=== PATIENT | female | born 1950 | race Caucasian/White ===

== ENCOUNTER → 2023-09-05 | Day surgery (SDC) | payer MEDICARE, OTHER ==
[~2023-09-05] MED LIST: Bupivacaine 0.25% 10 ML SDV ONE; Cyclobenzaprine 10 MG Tab PO PRN; EPINEPHrine 1 MG/ML SDV ONE; Midazolam 1 MG/ML 2 ML SDV ONE; Neostigmine Methylsulfate 10 MG/10 ML MDV ONE; Ondansetron 4 MG/2 ML SDV ONE; Phenylephrine 1% 10 MG/ML SDV ONE; Propofol 200 MG/20 ML SDV ONE; Ropivacaine 0.5% 5 MG/ML 30 ML SDV ONE; Sodium Chloride 0.9% 10 ML Syringe FLUSH PRN; Sodium Chloride 0.9% 10 ML Syringe FLUSH SCH; Triamcinolone Acetonide 40 MG/ML 1 ML SDV ONE; ceFAZolin 2 GM Vial ONE; dexmedeTOMIDine HCl 200 MCG/2 ML SDV ONE; fentaNYL 100 MCG/2 ML SDV ONE
[2023-09-05] MEDS: Lactated Ringers 1,000 ML IV SCH (08:00)
[2023-09-05] MEDS: Morphine 8 MG, EPINEPHrine 0.3 MG, Cefuroxime 750 MG, Ketorolac 30 MG, Sodium Chloride ... PRN (11:13)
[2023-09-05] MEDS: Tranexamic Acid 1,000 MG/10 ML Vial ONE (11:20)
[2023-09-05] MEDS: Vancomycin 1 GM SDV ONE (11:20)
== END | disposition home or self-care (01) ==
LOC: JD.SDS 07:49
PROVIDERS: ATTEND Orthopaedic Surgery
DX: M17.0 Bilateral primary osteoarthritis of knee (principal); I10 Essential (primary) hypertension; I49.3 Ventricular premature depolarization; G47.33 Obstructive sleep apnea (adult) (pediatric); K21.9 Gastro-esophageal reflux disease without esophagitis; E66.9 Obesity, unspecified; Z68.41 Body mass index [BMI] 40.0-44.9, adult; Z87.891 Personal history of nicotine dependence; Z79.82 Long term (current) use of aspirin; Z79.899 Other long term (current) drug therapy; Z88.2 Allergy status to sulfonamides
CPT/HCPCS: 0055T; 20610; 27447; 64447; 73560; 97116; 97161; C1713; C1776; J0171; J0690; J0697; J1885; J2250; J2270; J2371; J2405; J2704; J2710; J2795; J3010; J3301; J3370; J3490; J7030; J7120; 01402; 99100; J1596

== ENCOUNTER 2025-05-06 09:53 | Day surgery (SDC) | payer MEDICARE, OTHER ==
[~2025-05-06 09:53] MED LIST changes: -Bupivacaine 0.25% 10 ML SDV ONE; -Cyclobenzaprine 10 MG Tab PO PRN; -EPINEPHrine 1 MG/ML SDV ONE; -Midazolam 1 MG/ML 2 ML SDV ONE; -Neostigmine Methylsulfate 10 MG/10 ML MDV ONE; -Ondansetron 4 MG/2 ML SDV ONE; -Phenylephrine 1% 10 MG/ML SDV ONE; -Propofol 200 MG/20 ML SDV ONE; -Ropivacaine 0.5% 5 MG/ML 30 ML SDV ONE; -Triamcinolone Acetonide 40 MG/ML 1 ML SDV ONE; -ceFAZolin 2 GM Vial ONE; -dexmedeTOMIDine HCl 200 MCG/2 ML SDV ONE; -fentaNYL 100 MCG/2 ML SDV ONE; +oxyCODONE ER 10 MG TAB.ER PO ONE
[2025-05-06] MEDS ORDERED: Ropivacaine 0.5% 5 MG/ML 30 ML SDV ONE (10:55)
[2025-05-06] MEDS ORDERED: propofoL 500 MG/50 ML 50 ML ONE (10:55)
[2025-05-06] MEDS ORDERED: Midazolam 1 MG/ML 2 ML SDV ONE (10:55)
[2025-05-06] MEDS ORDERED: Ondansetron 4 MG/2 ML SDV ONE (10:55)
[2025-05-06] MEDS ORDERED: Ondansetron 4 MG/2 ML SDV IVPUSH PRN (12:52)
[2025-05-06] MEDS ORDERED: fentaNYL 100 MCG/2 ML SDV IVPUSH PRN (12:52)
[2025-05-06] MEDS ORDERED: Lidocaine 1% 4 ML ONE (13:36)
[2025-05-06] MEDS ORDERED: Lactated Ringers 1,000 ML ONE (13:36)
[2025-05-06] MEDS ORDERED: Propofol 200 MG/20 ML SDV ONE (13:53)
[2025-05-06] MEDS: Morphine 8 MG, EPINEPHrine 0.3 MG, Cefuroxime 750 MG, Ketorolac 30 MG, Sodium Chloride ... PRN (14:03)
[2025-05-06] MEDS: hydrALAZINE 20 MG/ML SDV IV PRN (15:43)
[2025-05-06] MEDS: Lactated Ringers 1,000 ML IV SCH (17:25)
[2025-05-06] MEDS: Orphenadrine 100 MG Tab.ER PO PRN (17:43)
== END 2025-05-06 18:15 | disposition home or self-care (01) ==
LOC: JD.SDS 09:53
PROVIDERS: ATTEND Orthopaedic Surgery
DX: M17.12 Unilateral primary osteoarthritis, left knee (principal); I10 Essential (primary) hypertension; E66.9 Obesity, unspecified; Z88.2 Allergy status to sulfonamides; Z88.8 Allergy status to other drugs, medicaments and biological substances; Z79.899 Other long term (current) drug therapy
CPT/HCPCS: 0055T; 27447; 64447; 73560; 97116; 97161; A9270; C1713; C1776; J0169; J0360; J0690; J0697; J1885; J2003; J2250; J2272; J2405; J2704; J2795; J3373; J7120; 01402; 99100